=== PATIENT | male | born 1970 | race Caucasian/White ===

== ENCOUNTER 2019-05-05 22:30 | Emergency (ER) | payer BC, OTHER ==
[~2019-05-05] VITALS: Ht 177.8 cm; Wt 114.8 kg
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
[2019-05-06] MEDS ORDERED: ACETAMINOPHEN TAB 650MG DOSE (2X325MG) PO ONE
[2019-05-06] MEDS ORDERED: NS 1,000 ML IV ONE (00:15)
[2019-05-06 00:16] VITALS: BP 122/84
== END 2019-05-06 00:18 | disposition home or self-care (01) ==
LOC: M ED 22:30
DX: S06.0X0A Concussion without loss of consciousness, initial encounter (principal); S16.1XXA Strain of muscle, fascia and tendon at neck level, initial encounter; V86.92XA Unspecified occupant of snowmobile injured in nontraffic accident, initial encounter; Y92.89 Other specified places as the place of occurrence of the external cause